=== PATIENT | male | born 1940 | race Caucasian/White ===

== ENCOUNTER 2019-10-07 06:56 | Day surgery (SDC) | payer MEDICARE ==
[2019-10-07] VITALS (7 sets, daily range): BP systolic 117–170; BP diastolic 70–85
[~2019-10-07] VITALS: Ht 170.2 cm; Wt 72.8 kg
[~2019-10-07 06:56] MED LIST: ENAL10TA PO; FAMO20TA8 PO; METO25TA6 PO; MULT-1192 PO; SODIUM CHLORIDE 0.9% 1000ML 1,000 ML IV ONE
[2019-10-07] MEDS ORDERED: PROPOFOL 10 MG/ML 20ML VIAL IV ONE (09:30)
--- NOTE | 2019-10-07 10:17 | NUR ---
dc dc instructions given to pt /spouse , instructed to f/u with dr. chen, to continue home meds. pt waiting for ride to go homepatient fully recovered. vs stable
--- NOTE | 2019-10-07 10:55 | NUR ---
dc pt dc home via [facility], no distress noted. pt accompanied by spouse and family friend. pt denied any pain or discomforts
== END 2019-10-07 10:55 | disposition home or self-care (01) ==
LOC: ENDO 06:56 → DAH 06:56 → ENDO 10:55
PROVIDERS: ATTEND Internal Medicine Gastroenterology
DX: K86.1 Other chronic pancreatitis (principal); K86.89 Other specified diseases of pancreas; M19.90 Unspecified osteoarthritis, unspecified site; R63.4 Abnormal weight loss; R93.3 Abnormal findings on diagnostic imaging of other parts of digestive tract; N28.9 Disorder of kidney and ureter, unspecified; E78.2 Mixed hyperlipidemia; Z79.899 Other long term (current) drug therapy; Z85.46 Personal history of malignant neoplasm of prostate; Z90.79 Acquired absence of other genital organ(s)
CPT/HCPCS: 43237; A4215; A4221; A4222; A4223; A4606; A4620; A4663; J2704; J7030; 43259